=== PATIENT | male | born 1950 | race Caucasian/White ===

== ENCOUNTER 2017-02-21 08:46 | Observation (INO) | payer OTHER ==
[~2017-02-21] VITALS: Ht 177.8 cm; Wt 114.3 kg
[~2017-02-21 08:46] MED LIST: AMLODIPINE BESYL5 MG PO; ASPIR-TRIN325 M1 PO; CELEBREX200 MG PO; COREG6.25 MG PO; COUMADIN,JANTOVE1 MG PO; CYCLOBENZAPRINE10 MG PO; Coreg PO; DILAUDID2 MG PO; DURAGESIC12 MCG TD; DURAGESIC25 MCG TD; Duragesic TD; ENDOCET 5-3251 EACH PO; FEOSOL325 MG PO; GABAPENTIN600 MG PO; GLIPIZIDE5 MG PO; HYDRODIURIL,O12.5 M1 PO; HYZAAR 100-11 TABLET PO; HYZAAR 100-21 TABLET PO; IRON325 MG PO; JANUVIA100 MG PO; LIDOCAINE700 MG TD; MELOXICAM15 MG PO; NEURONTIN600 MG PO; OXYCODONE HCL10 MG PO; Omega III EPA + DHA PO; PERCOCET 5/31 TABLET PO; SENOKOT S,PE1 TABLET PO; SENOKOT-S TABL1 EACH PO; Vicodin,Lortab 5/500 PO; ZOCOR40 MG PO; Zocor PO
[2017-02-21] MEDS ORDERED: VOLTAREN75 MG PO (12:21)
[2017-02-21 14:02] LABS: HEMATOCRIT 40.1 % (38.0-50.0); MCH 30.1 PG (29.0-34.0); MCHC 33.7 G/DL (30.0-36.0); MCV 89.3 FL (86-99); MEAN PLAT.VOLUME 10.2 uM^3 (9.0-12.4); PLATELET COUNT 188 K/uL (156-360); RBC DIS.WIDTH-CV 13.1 % (11.8-14.6); RBC DIS.WIDTH-SD 42.5 % (39-53); RED BLOOD COUNT 4.49 M/uL (4.00-5.50)
[2017-02-21 14:03] LABS: ADD MIUA? YES; BILIRUBIN NEGATIVE; BLOOD NEGATIVE; COLOR YELLOW ((YELLOW)); GLUCOSE (STRIP) 150; KETONES 5; LEUKOCYTES NEGATIVE; NITRITE NEGATIVE; PROTEIN (STRIP) 30; SPECIFIC GRAVITY 1.025 (1.000-1.030)
[2017-02-21 14:09] LABS: BACTERIA NONE SEEN /HPF; EPITHELIAL CELLS RARE /HPF; HYALINE CASTS 0-5 /LPF; MUCUS TRACE /LPF; RED BLOOD CELLS 0-5 /HPF (0-5); WHITE BLOOD CELLS 0-5 /HPF (0-5)
[2017-02-21 14:13] LABS: CHLORIDE 102 mEq/L (99-109); POTASSIUM 4.4 mEq/L (3.7-5.4); SODIUM 138 mEq/L (136-147)
[2017-02-21 14:14] LABS: GLUCOSE 115 mg/dL (70-99)
[2017-02-21 14:16] LABS: ANION GAP 8 MEQ/L (2-14)
[2017-02-21 14:18] LABS: GFR ESTIMATE (CALCULATED) 59 mL/min/
[2017-02-21 14:19] LABS: UREA NITROGEN (BUN) 16 mg/dL (9-23)
[2017-02-21 17:00] VITALS: BP 151/84
[2017-02-21] MEDS ORDERED: NORVASC5 MG PO (17:40)
[2017-02-21] MEDS ORDERED: HYZAAR 100-11 TABLET PO (17:41)
[2017-02-21] MEDS ORDERED: NEURONTIN600 MG PO (17:43)
[2017-02-21] MEDS ORDERED: LIPITOR20 MG PO (17:44)
[2017-02-21] MEDS ORDERED: ZANAFLEX4 M1 PO (17:45)
[2017-02-21 20:04] VITALS: BP 169/74
[2017-02-22 00:07] VITALS: BP 145/72
[2017-02-22 03:43] VITALS: BP 166/84
[2017-02-22 06:52] LABS: HEMATOCRIT 40.9 % (38.0-50.0); MCH 29.5 PG (29.0-34.0); MCHC 33.5 G/DL (30.0-36.0); MEAN PLAT.VOLUME 10.4 uM^3 (9.0-12.4); PLATELET COUNT 184 K/uL (156-360); RBC DIS.WIDTH-SD 41.5 % (39-53); RED BLOOD COUNT 4.65 M/uL (4.00-5.50); WHITE BLOOD COUNT 9.9 K/uL (4.1-10.2)
[2017-02-22 07:05] LABS: POINT-OF-CARE METER ID UU14208753
[2017-02-22 07:11] LABS: ANION GAP 8 MEQ/L (2-14); CHLORIDE 101 MEQ/L (99-109); GFR ESTIMATE (CALCULATED) > 59 mL/min/; GLUCOSE 127 mg/dL (70-99); SAMPLE HEMOLYSIS CHECK 0; SAMPLE ICTERIC CHECK 0; SAMPLE LIPEMIA CHECK 0; SODIUM 136 MEQ/L (136-147); UREA NITROGEN (BUN) 16 mg/dL (9-23)
[2017-02-22 08:00] VITALS: BP 164/87
[2017-02-22 12:13] VITALS: BP 181/89
[2017-02-22] MEDS ORDERED: HYDROCHLOROTH12.5 M3 PO (15:53)
[2017-02-22] MEDS ORDERED: OXYCONTIN15 MG PO (15:55)
[2017-02-22 16:25] VITALS: BP 166/83
[2017-02-22] MEDS ORDERED: ROXICODONE5 MG PO (16:54)
== END 2017-02-22 17:35 | disposition home or self-care (01) ==
LOC: EME 08:46 → 3EAST 14:40 → EDOF 14:40 → ENRESERV 14:46 → 3EAST 16:30
PROVIDERS: Hospitalist; Nurse Practitioner Family
DX: M54.5 Low back pain (principal); G89.29 Other chronic pain; M51.36 Other intervertebral disc degeneration, lumbar region; M19.90 Unspecified osteoarthritis, unspecified site; M41.9 Scoliosis, unspecified; I10 Essential (primary) hypertension; E78.5 Hyperlipidemia, unspecified; E11.9 Type 2 diabetes mellitus without complications; R20.9 Unspecified disturbances of skin sensation; R26.81 Unsteadiness on feet; E66.9 Obesity, unspecified; Z68.36 Body mass index [BMI] 36.0-36.9, adult; Z96.653 Presence of artificial knee joint, bilateral; Z79.84 Long term (current) use of oral hypoglycemic drugs
CPT/HCPCS: 72131; 72148; 80048; 81003; 82948; 85027; 99281; 99284; G0378; G8987 GO CH; G8988 GO CH; G8989 GO CH; J2270; J3010; J7050

== ENCOUNTER 2017-05-02 13:32 | Day surgery (SDC) | payer OTHER ==
[~2017-05-02] VITALS: Ht 177.8 cm; Wt 115.2 kg
[~2017-05-02 13:32] MED LIST changes: +ENDOCET 10-3251 EACH PO; +HYDROCHLOROTH12.5 M3 PO; +LIPITOR20 MG PO; +MORPHINE SULFAT15 M1 PO; +NAPROXEN500 MG PO; +NORVASC5 MG PO; +OXYCONTIN15 MG PO; +ROXICODONE5 MG PO; +VOLTAREN75 MG PO; +ZANAFLEX4 M1 PO
== END 2017-05-02 14:58 | disposition home or self-care (01) ==
LOC: PAIN 13:32 → SDC 14:45 → PAIN 14:58
DX: M47.26 Other spondylosis with radiculopathy, lumbar region (principal); M51.16 Intervertebral disc disorders with radiculopathy, lumbar region; M48.061 Spinal stenosis, lumbar region without neurogenic claudication; I10 Essential (primary) hypertension; E11.9 Type 2 diabetes mellitus without complications; E78.5 Hyperlipidemia, unspecified; K21.9 Gastro-esophageal reflux disease without esophagitis; E66.9 Obesity, unspecified; Z68.42 Body mass index [BMI] 45.0-49.9, adult; Z87.891 Personal history of nicotine dependence; Z79.891 Long term (current) use of opiate analgesic
CPT/HCPCS: J1100; J2250; J3010

== ENCOUNTER 2017-11-05 07:31 | Emergency (ER) | payer OTHER, MEDICARE ==
[~2017-11-05] VITALS: Ht 175.3 cm; Wt 119.9 kg
[2017-11-05 08:16] LABS: BASOPHIL (%) 0.4 % (0-1); EOSINOPHIL (%) 3.4 % (0-5); EOSINOPHIL COUNT 0.3 K/uL (0-0.3); HEMATOCRIT 44.9 % (38.0-50.0); HEMOGLOBIN 15.4 G/DL (12.5-16.6); IMMATURE GRANULOCYTE (%) 0.3 % (0.0-0.7); LYMPHOCYTE (%) 11.6 % (15-42); LYMPHOCYTE COUNT 1.1 K/uL (1.0-2.8); MCH 31.5 PG (29.0-34.0); MCHC 34.3 G/DL (30.0-36.0); MCV 91.8 FL (86-99); MONOCYTE (%) 12.1 % (3-12); MONOCYTE COUNT 1.1 K/uL (0-0.8); NEUTROPHIL (%) 72.2 % (45-76); NEUTROPHIL COUNT 6.7 K/uL (1.8-6.4); RBC DIS.WIDTH-CV 12.9 % (11.8-14.6); RBC DIS.WIDTH-SD 43.8 % (39-53); RED BLOOD COUNT 4.89 M/uL (4.00-5.50); WHITE BLOOD COUNT 9.3 K/uL (4.1-10.2)
[2017-11-05 08:49] LABS: CHLORIDE 101 MEQ/L (99-109); CREATININE 1.2 MG/DL (0.6-1.3); GFR ESTIMATE (CALCULATED) > 59 mL/min/ (58.99-99999); GLUCOSE 168 mg/dL (70-99); SODIUM 133 MEQ/L (136-147); UREA NITROGEN (BUN) 23 mg/dL (9-23); URIC ACID 4.8 mg/dL (3.1-9.2)
[2017-11-05 09:02] LABS: PLAT.SUFFICIENCY ADEQUATE; PLATELET COUNT 194 K/uL (156-360)
[2017-11-05] MEDS ORDERED: KEFLEX500 MG PO ×2 (09:16)
[2017-11-05] MEDS ORDERED: MOTRIN800 MG PO (09:16)
[2017-11-05 09:37] VITALS: BP 126/75
== END 2017-11-05 09:40 | disposition home or self-care (01) ==
LOC: EME 07:31
PROVIDERS: Emergency Medicine
DX: L03.115 Cellulitis of right lower limb (principal); M19.071 Primary osteoarthritis, right ankle and foot; I10 Essential (primary) hypertension; E11.9 Type 2 diabetes mellitus without complications; Z88.8 Allergy status to other drugs, medicaments and biological substances; Z79.891 Long term (current) use of opiate analgesic
CPT/HCPCS: 73610; 73630; 80048; 84550; 85025; 99281; 99284

== ENCOUNTER 2018-01-18 10:32 | Day surgery (SDC) | payer OTHER, MEDICARE ==
[~2018-01-18] VITALS: Ht 177.8 cm; Wt 120.3 kg
[~2018-01-18 10:32] MED LIST changes: +GLUCOTROL5 MG PO; +KEFLEX500 MG PO; +MOTRIN800 MG PO
[2018-01-18 11:27] VITALS: BP 132/84
[2018-01-18 19:59] VITALS: BP 140/60
== END 2018-01-18 20:40 | disposition home or self-care (01) ==
LOC: SDC 10:32
PROVIDERS: Podiatrist Foot & Ankle Surgery
DX: M21.41 Flat foot [pes planus] (acquired), right foot (principal); M67.01 Short Achilles tendon (acquired), right ankle; I10 Essential (primary) hypertension; E11.9 Type 2 diabetes mellitus without complications; Z79.84 Long term (current) use of oral hypoglycemic drugs; Z87.891 Personal history of nicotine dependence
CPT/HCPCS: 73630; 76000; 82948; J0131; J0690; J1100; J1170; J1885; J2250; J2405; J2710; J2795; J3010; J7643; S0020